=== PATIENT | female | born 1955 | race Caucasian/White ===

== ENCOUNTER 2023-04-23 12:59 | Emergency (ER) | payer BC, OTHER ==
[~2023-04-23] VITALS: Ht 160 cm; Wt 49.9 kg
[2023-04-23] MEDS ORDERED: PHENYLEPHRINE HCL NASAL SPRAY 15 ML BOTTLE NS ONE ×2 (13:11→13:30)
--- NOTE | 2023-04-23 13:14 | NUR ---
PATIENT TAKEN TO CT VIA [facility]
--- NOTE | 2023-04-23 14:07 | NUR ---
Patient discharged to home in stable condition. Written and verbal after care instructions given. Patient verbalizes understanding of instruction.
[2023-04-23 14:09] VITALS: BP 141/78; TEMP 98.2
== END 2023-04-23 14:09 | disposition home or self-care (01) ==
LOC: ER 13:04
DX: R51.9 Headache, unspecified (principal); R04.0 Epistaxis; Z88.0 Allergy status to penicillin; Z88.2 Allergy status to sulfonamides; Z88.5 Allergy status to narcotic agent; Z88.1 Allergy status to other antibiotic agents
CPT/HCPCS: 70450-TC; 73562